=== PATIENT | female | born 2000 | race Caucasian/White ===

== ENCOUNTER 2022-05-15 21:45 | Observation (INO) | payer BC, OTHER ==
[2022-05-15 22:23] LABS: Amphetamine,Urine NEGATIVE (NEGATIVE); Barbiturate,Urine NEGATIVE (NEGATIVE); Benzodiazepine,Urine NEGATIVE (NEGATIVE); Methadone,Urine NEGATIVE (NEGATIVE); Opiate,Urine NEGATIVE (NEGATIVE); PCP,Urine NEGATIVE (NEGATIVE); THC,Urine NEGATIVE (NEGATIVE)
[2022-05-15 23:00] VITALS: BP 145/82; PULSE 87
== END 2022-05-15 22:48 | disposition home or self-care (01) ==
LOC: OB 21:45
PROVIDERS: ADMIT Family Medicine; ATTEND Family Medicine
DX: Z34.03 Encounter for supervision of normal first pregnancy, third trimester (principal); Z3A.36 36 weeks gestation of pregnancy
CPT/HCPCS: 80307; G0378

== ENCOUNTER 2022-06-01 03:06 | Inpatient (IN) | payer OTHER, BC ==
[2022-06-01] MEDS ORDERED: XYLOCAINE 1% HCL 20 ML MDV IJ PRN (04:24)
[2022-06-01] MEDS ORDERED: TYLENOL EXTRA STRENGTH 500 MG PO PRN (04:24)
[2022-06-01] MEDS ORDERED: Zofran 4 MG/2 ML VIAL IV PRN (04:24)
[2022-06-01] MEDS ORDERED: BRETHINE 1 MG/ML SQ PRN (17:30)
[2022-06-01] MEDS ORDERED: Cervidil 10 MG VAG SCH (17:30)
[2022-06-01 18:12] LABS: Absolute Neutrophil Ct (ANC) 10.92 x10^3/uL (1.4-6.9); Basophil (Absolute #) 0.02 x10^3/uL (0-0.4); Eosinophil % 0.2 % (0.00-5.0); Eosinophil (Absolute #) 0.03 x10^3/uL (0-0.5); Hematocrit 32.3 % (35-47); Lymphocyte (Absolute #) 2.15 x10^3/uL (1.0-4.6); Lymphocytes % 15.2 % (24.0-44.0); Mean Cell Volume 88.3 fL (78-100); Mean Corpuscular Hemoglobin 30.1 pg (26-32); Mean Corpuscular Hgb Concent. 34.1 g/dL (32-36); Mean Platelet Volume 9.9 fL (7.5-11.0); Monocyte (Absolute #) 0.93 x10^3/uL (0.0-1.3); Monocytes % 6.6 % (0.0-12.0); Neutrophil % 77.1 % (36.0-66.0); Platelet Count 219 x10^3/uL (150-450); Red Blood Count 3.66 x10^6/uL (4.1-5.4); Red Cell Distribution Width 13.5 % (11.5-14.0); White Blood Count 14.2 x10^3/uL (4.0-10.5)
[2022-06-01 19:03] LABS: ABO TYPING A; Antibody Screen NEGATIVE (NEGATIVE); RH TYPING POSITIVE
[2022-06-01 19:27] LABS: Amphetamine,Urine NEGATIVE (NEGATIVE); Barbiturate,Urine NEGATIVE (NEGATIVE); Benzodiazepine,Urine NEGATIVE (NEGATIVE); Cocaine,Urine NEGATIVE (NEGATIVE); Methadone,Urine NEGATIVE (NEGATIVE); Opiate,Urine NEGATIVE (NEGATIVE); PCP,Urine NEGATIVE (NEGATIVE); THC,Urine NEGATIVE (NEGATIVE)
[2022-06-02] MEDS ORDERED: PITOCIN 30 UNITS/ LR 500 ML 30 UNITS/500 ML PLAST..BAG IV SCH ×2 (06:00→12:00)
[2022-06-02] MEDS: Lactated Ringers 1,000 ML IV SCH ×3 (06:11→16:22)
[2022-06-02] MEDS ORDERED: Ephedrine Sulfate 50 MG/ML IV PRN (15:11)
[2022-06-02] MEDS ORDERED: Lactated Ringers 1,000 ML IV ONE (15:11)
[2022-06-02] MEDS ORDERED: FENTANYL 2 MCG-BUPIV 0.125%-NS 250 ML Epidur 250 ML EPIDURAL SCH (15:15)
[2022-06-02] MEDS ORDERED: Sensorcaine 0.25% 10 ML ONE (16:31)
[2022-06-02] MEDS ORDERED: LANSINOH 40 GM TOP PRN (21:52)
[2022-06-02] MEDS ORDERED: Dermoplast Spray TP PRN (21:52)
[2022-06-02] MEDS ORDERED: NORCO 5/325 MG PO PRN (21:52)
[2022-06-02] MEDS ORDERED: TUCKS TP PRN (22:03)
[2022-06-03] MEDS: Lactated Ringers 1,000 ML IV SCH (00:28)
[2022-06-03] MEDS: MOTRIN 400 MG PO PRN ×4 (01:14→23:37)
[2022-06-03] MEDS: Docusate Sodium 100 MG PO SCH ×3 (01:17→21:38)
[2022-06-03 07:35] LABS: Absolute Neutrophil Ct (ANC) 6.97 x10^3/uL (1.4-6.9); Basophil (Absolute #) 0.02 x10^3/uL (0-0.4); Eosinophil % 0.2 % (0.00-5.0); Eosinophil (Absolute #) 0.02 x10^3/uL (0-0.5); Hematocrit 29.1 % (35-47); Hemoglobin 9.4 g/dL (12.0-16.0); Lymphocyte (Absolute #) 1.66 x10^3/uL (1.0-4.6); Lymphocytes % 16.6 % (24.0-44.0); Mean Cell Volume 91.2 fL (78-100); Mean Corpuscular Hemoglobin 29.5 pg (26-32); Mean Corpuscular Hgb Concent. 32.3 g/dL (32-36); Mean Platelet Volume 9.4 fL (7.5-11.0); Monocyte (Absolute #) 1.22 x10^3/uL (0.0-1.3); Monocytes % 12.2 % (0.0-12.0); Platelet Count 154 x10^3/uL (150-450); Red Blood Count 3.19 x10^6/uL (4.1-5.4); Red Cell Distribution Width 13.7 % (11.5-14.0)
[2022-06-03] MEDS: FERREX 150 PO SCH (08:23)
[2022-06-03 10:16] LABS: HBsAg Screen Negative (Negative)
[2022-06-04] MEDS: Lactated Ringers 1,000 ML IV SCH ×2 (00:04→00:05)
--- NOTE | 2022-06-04 07:00 | PCM.DS ---
Discharge Summary Date of Admission: 06/02/22 14:42 Admitting Physician: PITER CHINO Consults: Consults on Case 06/02/22 20:14 Navigation ONCE Primary Care Provider: PITER CHINO Allergies Allergies ciprofloxacin Adverse Reaction (Verified 06/01/22 17:39) Vomiting Hospital Summary - Hospital Course Hospital Course: patient had uncomplicated , doing great and - Vitals & Intake/Output Vital Signs: Vital Signs Temperature 97.8 F 06/04/22 02:00 Pulse Rate 73 06/04/22 02:00 Respiratory Rate 18 06/04/22 02:00 Blood Pressure 127/58 06/04/22 02:00 O2 Sat by Pulse Oximetry 99 06/04/22 02:00 Intake & Output: Intake & Output 06/01/22 06/02/22 06/03/22 06/04/22 11:59 11:59 11:59 11:59 Intake Total 1800 700 500 Output Total 600 Balance 1800 100 500 Weight 99.79 kg - Lab Result Diagrams: 06/03/22 07:29 Lab Results-Last 24 Hrs: Lab Results-Last 24 Hours 06/01/22 06/03/22 Range/Units 18:09 07:29 WBC 10.0 (4.0-10.5) x10^3/uL RBC 3.19 L (4.1-5.4) x10^6/uL Hgb 9.4 L (12.0-16.0) g/dL Hct 29.1 L (35-47) % MCV 91.2 (78-100) fL MCH 29.5 (26-32) pg MCHC 32.3 (32-36) g/dL RDW 13.7 (11.5-14.0) % Plt Count 154 (150-450) x10^3/uL MPV 9.4 (7.5-11.0) fL Gran % 70.0 H (36.0-66.0) % Immature Gran % (Auto) 0.8 H (0.00-0.4) % Nucleat RBC Rel Count 0.0 (0.00-0.1) % Eos # (Auto) 0.02 (0-0.5) x10^3/uL Immature Gran # (Auto) 0.08 H (0.00-0.03) x10^3u/L Absolute Lymphs (auto) 1.66 (1.0-4.6) x10^3/uL Absolute Monos (auto) 1.22 (0.0-1.3) x10^3/uL Absolute Nucleated RBC 0.00 (0.00-0.01) x10^3u/L Lymphocytes % 16.6 L (24.0-44.0) % Monocytes % 12.2 H (0.0-12.0) % Eosinophils % 0.2 (0.00-5.0) % Basophils % 0.2 (0.0-0.4) % Absolute Granulocytes 6.97 H (1.4-6.9) x10^3/uL Basophils # 0.02 (0-0.4) x10^3/uL Hep Bs Antigen Negative (Negative) Discharge Exam General Appearance: no apparent distress, alert Respiratory Exam: normal breath sounds, lungs clear, No respiratory distress Cardiovascular Exam: regular rate/rhythm, normal heart sounds Gastrointestinal/Abdomen Exam: soft, No tenderness, No mass Final Diagnosis/Problem List - Final Discharge Diagnosis/Problem (1) Vaginal delivery Current Visit: Yes Status: Acute Code(s): O80 - ENCOUNTER FOR FULL-TERM UNCOMPLICATED DELIVERY (2) (infant) Current Visit: Yes Status: Acute Code(s): Z78.9 - OTHER SPECIFIED HEALTH STATUS - Discharge Disposition: Home, Self-Care Condition: Stable Prescriptions: Continue Pnv No.95/Ferrous Fum/Folic AC [ Caplet] 1 each PO DAILY Follow up with: PITER CHINO MD [Primary Care Provider] -
[2022-06-04] MEDS: FERREX 150 PO SCH (09:30)
[2022-06-04] MEDS: Docusate Sodium 100 MG PO SCH (09:30)
[2022-06-04] MEDS: MOTRIN 400 MG PO PRN (09:30)
[2022-06-04 10:30] VITALS: O2SAT 98
[2022-06-04 19:15] VITALS: BP 133/59; PULSE 87
== END 2022-06-04 19:05 | disposition home or self-care (01) | DRG 807 ==
LOC: OB 14:42 → OBSVTOIN 06-02 14:42
PROVIDERS: ADMIT Family Medicine; ATTEND Family Medicine
PROC: 10E0XZZ Delivery of Products of Conception, External Approach (ICD-10-PCS; principal; 2022-06-02)
PROC: 0KQM0ZZ Repair Perineum Muscle, Open Approach (ICD-10-PCS; 2022-06-02)
DX: O70.1 Second degree perineal laceration during delivery (principal); Z37.0 Single live birth; Z3A.39 39 weeks gestation of pregnancy; Z20.828 Contact with and (suspected) exposure to other viral communicable diseases
CPT/HCPCS: 36415; 80307; 85025; 86850; 86900; 86901; 87340; G0378; J2590; A9270-GY

== ENCOUNTER 2023-04-08 21:59 | Emergency (ER) | payer OTHER, BC ==
[2023-04-08 23:30] VITALS: PULSE 88; O2SAT 100
--- NOTE | 2023-04-09 | ERPHSYRPT ---
- History of Present Illness Time Seen by Provider: 04/08/23 23:55 Source: patient, family Exam Limitations: no limitations Patient Subjective Stated Complaint: pt states I seen a bug and freaked out a little. pt states that she heard a pop and fell. Triage Nursing Assessment: pt ambulated into the er; pt is axo x4; c/o rt knee pain; strong rt pedal pulse; good cap refill to RLE; no decreased ROM to RLE; skin PDW; no respiratory distress present; vitals wnl Physician History: pt twisted right knee, and has pain. No other trauma or symptoms to report. N/V intact but ligaments are lax and may have had a patellar dislocation as well. discussed risk/benefit of x-ray and knee immobilizer and pt and mom wish to proceed. Mom acts as independent source to confirm hx. Method of Injury: fell, twisted Quality: constant, sharpness Severity of Pain-Max: moderate Severity of Pain-Current: moderate Lower Extremities Pain: knee: right Modifying Factors: Improves With: immobilization, movement Associated Symptoms: popping sensation Allergies/Adverse Reactions: ciprofloxacin Adverse Reaction (Verified 04/08/23 22:14) Vomiting Home Medications: No Reportable Medications [No Reported Medications] 04/08/23 [History] Hx Tetanus, Diphtheria Vaccination/Date Given: Yes Hx Influenza Vaccination/Date Given: No Hx Pneumococcal Vaccination/Date Given: No Travel Risk - International Travel Have you traveled outside of the country in past 3 weeks: No - Coronavirus Screening Are you exhibiting any of the following symptoms?: No Close contact with a COVID-19 positive Pt in past 14-21 Days: No - Vaccine Status Have you recieved a Covid-19 vaccination: No - Review of Systems Constitutional: No Fever, No Chills Eyes: No Symptoms Ears, Nose, & Throat: No Symptoms Respiratory: No Cough, No Dyspnea Cardiac: No Chest Pain, No Edema, No Syncope Abdominal/Gastrointestinal: No Abdominal Pain, No Nausea, No Vomiting, No Diarrhea Genitourinary Symptoms: No Dysuria Musculoskeletal: Fall, Injury, Joint Pain, No Back Pain, No Neck Pain Skin: No Rash Neurological: No Dizziness, No Focal Weakness, No Sensory Changes Psychological: No Symptoms Endocrine: No Symptoms Hematologic/Lymphatic: No Symptoms Immunological/Allergic: No Symptoms All Other Systems: Reviewed and Negative - Past Medical History Pertinent Past Medical History: No - Past Surgical History Past Surgical History: No - Social History Smoking Status: Never smoker Exposure to second hand smoke: No Drug Use: none Patient Lives Alone: No - Female History Hx Now: No - Nursing Vital Signs Nursing Vital Signs: Initial Vital Signs Temperature 97.3 F 04/08/23 22:15 Pulse Rate 87 04/08/23 22:15 Respiratory Rate 18 04/08/23 22:15 Blood Pressure 143/76 04/08/23 22:15 O2 Sat by Pulse Oximetry 99 04/08/23 22:15 Pain Scale Pain Intensity 4 - Physical Exam General Appearance: no apparent distress, alert Eyes, Ears, Nose, Throat Exam: moist mucous membranes Neck Exam: non-tender, supple Cardiovascular/Respiratory Exam: chest non-tender, normal breath sounds, regular rate/rhythm, no respiratory distress Gastrointestinal/Abdominal Exam: non-tender, guarding Back Exam: normal inspection, No vertebral tenderness Hips Exam: bilateral: non-tender, normal inspection, normal range of motion, no evidence of injury Legs Exam: bilateral leg: non-tender, normal inspection, normal range of motion, no evidence of injury Knees Exam: right knee: pain, soft tissue tenderness, left knee: non-tender, normal inspection, normal range of motion, no evidence of injury Ankle Exam: bilateral ankle: non-tender, normal inspection, normal range of motion, no evidence of injury Foot Exam: bilateral foot: non-tender, normal inspection, normal range of motion, no evidence of injury DTR - Lower Extremities Exam: knee (R): 2+, knee (L): 2+, ankle (R): 2+, ankle (L): 2+ Neuro/Tendon Exam: normal sensation, normal motor functions, normal tendon functions Mental Status Exam: alert, oriented x 3, cooperative Skin Exam: normal color, warm, dry SpO2 Interpretation: normal SpO2: 100 O2 Delivery: Room Air Procedures - Splinting Location of Splint: Right, Knee Type of Splint: Other (immobilizer) Splint Applied By: ED Nurse Pre-Proc Neuro Vasc Exam: normal Post-Proc Neuro Vasc Exam: neurovascular intact, good alignment, unchanged from pre-exam - Course Nursing assessment & vital signs reviewed: Yes - Radiology Exams Right Knee X-ray Interpretation: Reviewed by me, No Fracture, No Subluxation Ordered Tests: Active Orders 24 hr Category Date Time Status KNEE (MIN 4 VIEW) Stat Exams 04/08/23 22:24 Taken - Progress Progress: improved, re-examined Counseled pt/family regarding: diagnosis, need for follow-up, rad results Medical Desision Making - Independent Historian Additional History obtained from: Mother - Diagnostic Testing Diagnostic test were ordered, analyzed, and reviewed by me: Yes Radiological Interpretation: Reviewed by me - Risk of complications Low Risk: Low risk of morbidity from additional dx testing or treatment - Departure Departure Disposition: Home Clinical Impression: Internal derangement of knee Condition: Good Critical Care Time: No Referrals: DOCTOR,NO FAMILY [Primary Care Provider] - Follow up/PCP as directed Instructions: Knee Pain (DC), Internal Derangement of the Knee (DC) Additional Instructions: followup with your DrJosselyn for Ortho referral this week, return meantime if any concerns, numbness, increased swelling or other.
[2023-04-09 00:12] VITALS: BP 118/64
--- NOTE | 2023-04-09 08:13 | XRAY ---
Indication: Pain and popping following fall. Comparison: None 4 View right knee obtained. No bony, articular, or soft tissue abnormalities.
== END 2023-04-09 00:25 | disposition home or self-care (01) ==
LOC: ED 21:59
DX: M23.91 Unspecified internal derangement of right knee (principal); M25.561 Pain in right knee; Z28.310 Unvaccinated for COVID-19
CPT/HCPCS: 73564; 99283; L1830